=== PATIENT | female | born 1955 | race Caucasian/White ===

== ENCOUNTER 2018-06-24 09:08 | Outpatient (REF) | payer MEDICAID, SELFPAY ==
[2018-06-24 12:50] LABS: ALT 35 U/L (12-78); AST 22 U/L (15-37); Albumin 3.2 g/dL (3.4-5.0); Alkaline Phosphatase 121 U/L (46-116); Anion Gap 8.4 mmol/L (3-11); BUN 10 mg/dL (7-18); Bilirubin, Total 0.4 mg/dL (0.2-1.0); CO2 29.6 mmol/L (21.0-32.0); CREATININE 0.69 mg/dL (0.55-1.02); Calcium 9.9 mg/dL (8.5-10.1); Chloride 101 mmol/L (98-107); Cholesterol 234 mg/dL (50-200); Glucose 107 mg/dL (70-100); HDL Cholesterol 28 mg/dL (40-60); LDL CHOLESTEROL 161 mg/dL (<100); Potassium 4.7 mmol/L (3.5-5.1); Sodium 139 mmol/L (136-145); TSH (W/Ref FT4) 2.18 uIU/mL (0.358-3.74); Total Protein 7.2 g/dL (6.4-8.2); Triglyceride 190 mg/dL (30-150)
[2018-06-24 14:09] LABS: Hemoglobin A1C 6.3 % (4.5-6.2)
== END 2018-06-24 09:28 ==
LOC: NCHCN 09:08
PROVIDERS: PCP Nurse Practitioner Family; Visit Provider Nurse Practitioner Family
DX: E78.5 Hyperlipidemia, unspecified (principal); E04.1 Nontoxic single thyroid nodule; E11.9 Type 2 diabetes mellitus without complications; Z00.00 Encounter for general adult medical examination without abnormal findings
CPT/HCPCS: 80053; 80061; 83721; 83036; 84443

== ENCOUNTER 2018-06-28 09:28 | Outpatient (CLI) | payer MEDICAID, SELFPAY ==
--- NOTE | 2018-06-28 09:22 | DI.RAD_ITS ---
SYMPTOMS/DIAGNOSIS: PAIN RIGHT KNEE: Two views. No priors. There are post surgical changes of a prior anterior cruciate ligament repair. There is marked narrowing of the medial femoral tibial joint space and the patellofemoral joint. Large osteophytes are seen involving all three joint compartments. No acute fracture or dislocation is identified. There is a small suprapatellar joint effusion. The soft tissues are otherwise unremarkable. IMPRESSION: Marked osteoarthritic changes of the right knee.
== END 2018-06-28 09:48 ==
PROVIDERS: PCP Nurse Practitioner Family; Visit Provider Physician Assistant Surgical
DX: M25.561 Pain in right knee (principal); M17.11 Unilateral primary osteoarthritis, right knee
CPT/HCPCS: 73560

== ENCOUNTER 2018-07-18 13:23 | Outpatient (REF) | payer MEDICAID, SELFPAY ==
[2018-07-18 19:54] LABS: COMMENT (LAB VIEW ONLY) < 13.00 mg/dL
[2018-07-20 10:36] LABS: Hepatitis C Ab w Rflx HCV PCR Negative (NEGAT)
== END 2018-07-18 13:43 ==
LOC: NCHCN 13:23
PROVIDERS: PCP Nurse Practitioner Family; Visit Provider Nurse Practitioner Family
DX: E11.9 Type 2 diabetes mellitus without complications (principal); Z87.19 Personal history of other diseases of the digestive system
CPT/HCPCS: 86803; 82043; 82570

== ENCOUNTER 2019-11-13 08:15 | Emergency (ER) | payer MEDICAID, SELFPAY ==
--- NOTE | 2019-11-13 08:15 | RT.EKG_ITS ---
APPROVED REPORT Exam: Resting ECG Patient Location: E HR:76 bpm ECG Measurements Heart Rate 76 AXIS NJ 156 P 0 QRSd 96 QRS 73 QT 402 T 80 QTc 453 Conclusion Sinus rhythm...normal P axis, V-rate 60- 99 Low voltage, extremity leads <0.5mV no st elevation, non specific st changes I,aVL
[2019-11-13 08:21] VITALS: BP 185/86; PULSE 105; RESP 16; TEMP 35.6; O2SAT 98
[2019-11-13] MEDS: Normal Saline 1,000 ML 1000 ML IV (08:50)
--- NOTE | 2019-11-13 08:54 | ED.GENADUL_ITS ---
Discharge Plan Disposition Patient Disposition: HOME Condition: Stable Discharge Details Clinical Impression: Gastritis Primary Care Provider: Niharika Carey ED Provider: Yosvany Booth Home Meds and New Rx's Prescriptions: New famotidine [Pepcid] 20 mg tablet 20 mg PO DAILY Qty: 30 RF: 0 Continued meloxicam [Mobic] 7.5 mg tablet 7.5 mg PO DAILY RF: 0 omeprazole 40 mg capsule,delayed release(DR/EC) 40 mg PO DAILY RF: 0 atorvastatin [Lipitor] 20 mg tablet 20 mg PO DAILY RF: 0 Discharge Instructions Instructions: Gastritis (ED) Additional Instructions: At this time your work-up and CT findings are most consistent with gastritis. As we discussed I do recommend cutting back on triggers such as smoking, caffeine, acidic foods, etc. I would like you to be sure that you are taking the omeprazole as directed and add on Pepcid in the meantime. Please watch for new or worsening symptoms and return to the ER for any concerns. I have also given you the name and number of our local general surgeon as you may require additional studies and reevaluation for more definitive care. Otherwise I recommend you contact your primary care provider later today or tomorrow for prompt outpatient reevaluation Referrals: Kailee Sebastian DO [OSTEOPATHIC DOCTOR] - Medical Decision Making 64-year-old female with history of what she describes as a stomach ulcer, GERD, hyperlipidemia, presents with epigastric discomfort that is been present for the past 4 days, worse after eating. She did not have breakfast and reports that her pain is fairly mild at this time. Clinically she appears well, nontoxic. Does have reproducible abdominal pain in the epigastric region without guarding, rebound or rigidity. Clinically her differential includes but not excluded to gastritis, peptic ulcer, duodenal ulcer, pancreatitis, esophagitis, biliary colic, etc. Given her age and comorbidities, I do believe a single troponin and EKG is reasonable to obtain however ACS extremely low my differential. Laboratory values reveal a white blood cell count of 12.48 hemoglobin 15.2 hematocrit 46.2 platelet count 362. INR 0.9 electrolytes unremarkable, creatinine 0.73 with estimated GFR greater than 60. LFTs unremarkable. Troponin less than 0.05. Urinalysis unremarkable. Upon reevaluation both blood pressure and heart rate are trending down nicely. She was given a GI cocktail with mild improvement. Given her mild nonspecific leukocytosis, will obtain CT imaging of the abdomen pelvis with contrast as well as give her a single dose of IV Pepcid. CT imaging obtained and read by radiology as findings that would be consistent with gastritis. This certainly fits her clinical presentation. Upon reevaluation she reports significant improvement of her pain with the IV med ication. We once again discussed her work-up including her most likely diagnosis. We discussed triggers such as smoking, caffeine, acidic foods, [id number] anti-inflammatory medications. She has been taking [id number] omeprazole for short period of time, does not feel as though it is really helping. We will add on oral Pepcid and give her the name and number of our local surgeon for follow-up and potential outpatient endoscopy. Patient has no additional questions or concerns and is very comfortable with this plan. She was encouraged to return to the ER for new or worsening symptoms. Medical Records Medical records reviewed: Yes I reviewed the patient's medical records. Lab Data Lab results reviewed: Yes I reviewed the patient's lab results. Lab results narrative: Laboratory Tests Range/Units 11/13/19 11/13/19 11/13/19 08:45 08:45 08:45 WBC (4.4-10.8) 10^3/uL RBC (3.93-5.22) 10^6/uL Hgb (11.2-15.7) g/dL Hct (36.0-46.0) % MCV (80-95) fL MCH (27.0-33.0) pg MCHC (32.0-36.0) % RDW (11.7-14.6) % Plt Count (130-400) 10^3/uL MPV (8.0-11.0) fL Immature Gran % Neutrophils % Lymphocytes % Monocytes % Eosinophils % Basophils % Nucleated RBC % % Absolute Neutrophils (1.2-6.7) 10^3/uL Absolute Lymphocytes (1.2-3.4) 10^3/uL Absolute Monocytes (0.1-0.8) 10^3/uL Absolute Eosinophils (0.0-0.7) 10^3/uL Absolute Basophils (0.0-0.2) 10^3/uL PT (9.3-11.0) sec 9.5 INR (0.9-1.1) 0.9 Sodium (136-145) mmol/L 138 Potassium (3.5-5.1) mmol/L 4.0 Chloride (98-107) mmol/L 103 Carbon Dioxide (21.0-32.0) mmol/L 28.9 Anion Gap (3-11) mmol/L 6.1 BUN (7-18) mg/dL 13 Creatinine (0.55-1.02) mg/dL 0.73 Estimated GFR/1.73 m2 (mL/min/1.73m2) >= 60.00 Glucose (74-106) mg/dL 128 H Calcium (8.5-10.1) mg/dL 9.5 Magnesium (1.8-2.4) mg/dL 2.0 Total Bilirubin (0.2-1.0) mg/dL 0.3 AST (15-37) U/L 19 ALT (14-59) U/L 30 Alkaline Phosphatase (46-116) U/L 92 Troponin I (<0.06) ng/mL < 0.05 Total Protein (6.4-8.2) g/dL 7.2 Albumin (3.4-5.0) g/dL 3.4 Lipase (73-393) U/L 139 Urine Color (Yellow) Urine Clarity (Clear) Urine pH (5-8) Ur Specific Poston (1.005-1.025) Urine Protein (Negative) mg/dL Urine Ketones (Negative) mg/dL Urine Blood (Negative) Urine Nitrite (Negative) Urine Bilirubin (Negative) Urine Urobilinogen (Up TO 0.2) EU/dL Ur Leukocyte Esterase (Negative) Urine Glucose (Negative) mg/dL Range/Units 11/13/19 11/13/19 11/13/19 08:45 09:13 11:29 WBC (4.4-10.8) 10^3/uL 12.48 H RBC (3.93-5.22) 10^6/uL 5.24 H Hgb (11.2-15.7) g/dL 15.2 Hct (36.0-46.0) % 46.2 H MCV (80-95) fL 88.2 MCH (27.0-33.0) pg 29.0 MCHC (32.0-36.0) % 32.9 RDW (11.7-14.6) % 12.6 Plt Count (130-400) 10^3/uL 362 MPV (8.0-11.0) fL 9.4 Immature Gran % 0.5 Neutrophils % 63.7 Lymphocytes % 26.5 Monocytes % 6.9 Eosinophils % 2.2 Basophils % 0.2 Nucleated RBC % % 0 Absolute Neutrophils (1.2-6.7) 10^3/uL 7.95 H Absolute Lymphocytes (1.2-3.4) 10^3/uL 3.31 Absolute Monocytes (0.1-0.8) 10^3/uL 0.86 H Absolute Eosinophils (0.0-0.7) 10^3/uL 0.27 Absolute Basophils (0.0-0.2) 10^3/uL 0.02 PT (9.3-11.0) sec INR (0.9-1.1) Sodium (136-145) mmol/L Potassium (3.5-5.1) mmol/L Chloride (98-107) mmol/L Carbon Dioxide (21.0-32.0) mmol/L Anion Gap (3-11) mmol/L BUN (7-18) mg/dL Creatinine (0.55-1.02) mg/dL Estimated GFR/1.73 m2 (mL/min/1.73m2) Glucose (74-106) mg/dL Calcium (8.5-10.1) mg/dL Magnesium (1.8-2.4) mg/dL Total Bilirubin (0.2-1.0) mg/dL AST (15-37) U/L ALT (14-59) U/L Alkaline Phosphatase (46-116) U/L Troponin I (<0.06) ng/mL Cancelled Total Protein (6.4-8.2) g/dL Albumin (3.4-5.0) g/dL Lipase (73-393) U/L Urine Color (Yellow) Yellow Urine Clarity (Clear) Clear Urine pH (5-8) 6.0 Ur Specific Poston (1.005-1.025) 1.010 Urine Protein (Negative) mg/dL Negative Urine Ketones (Negative) mg/dL Negative Urine Blood (Negative) Negative Urine Nitrite (Negative) Negative Urine Bilirubin (Negative) Negative Urine Urobilinogen (Up TO 0.2) EU/dL 0.2 Ur Leukocyte Esterase (Negative) Negative Urine Glucose (Negative) mg/dL Negative ECG Data Attestation: I personally reviewed and interpreted this ECG (s) as follows: Interpretation: Please see official report by Dr. Donnelly. Sinus rhythm, ventricular rate of 76. No STEMI HPI General Mode of arrival: ambulatory . Date/Time Provider Initiated Documentation: 11/13/19 08:26 . Limitations to Documentation: no limitations . Information obtained by: patient . HPI Narrative: This is a 64-year-old female with past medical history that includes GERD, ulcer, hyperlipidemia, current pack a day smoker. She reports a history of hysterectomy and exploratory laparotomy. She is complaining of abdominal pain that is been present for the past 4 days or so, fairly constant, but worse after eating and sitting forward. She says the pain is burning and feels like someone is scratching at her stomach from the inside, currently is extremely mild but at times is severe. She denies any other symptoms such as bad food exposure, change in her diet, fever, chest pain, shortness of breath, radiation into her back, nausea, vomiting, diarrhea, constipation, dysuria or hematuria. She has taken some Pepto-Bismol [id number] with only minimal relief. Lying down flat on her back does seem to alleviate the pain. She has not eaten this morning and states that her pain is mild now because of that. She tells me that her gallbladder has acted up in the past but is never required surgery. Per her triage note it states that she has had occasional problems with her pancreas however she denies this to me. She denies any alcohol or drug use. She has never had an endoscopy. Reports colonoscopy probably 5 or 6 years ago in [place]. Related Data Home Medications Medication Instructions Recorded Confirmed atorvastatin 20 mg tablet 20 mg PO DAILY 06/28/18 11/13/19 meloxicam 7.5 mg tablet 7.5 mg PO DAILY 06/28/18 11/13/19 omeprazole 40 mg capsule,delayed 40 mg PO DAILY 06/28/18 11/13/19 release famotidine [Pepcid] 20 mg PO DAILY #30 tab 11/13/19 Previous Rx's Medication Instructions Recorded famotidine [Pepcid] 20 mg PO DAILY #30 tab 11/13/19 Allergies Allergy/AdvReac Type Severity Reaction Status Date / Time codeine Allergy Severe ORAL Verified 11/13/19 08:26 BLISTERS, THROAT SWELLING Penicillins Allergy Severe ORAL Verified 11/13/19 08:26 BLISTERS, THROAT SWELLING Egg Derived Allergy Intermediate Verified 11/13/19 08:26 General Stated Complaint: Abd Prob JUNO: 3 Review of Systems Constitutional Constitutional: Denies fatigue and Denies fever(s) ENT Ears, Nose, Mouth, and Throat: Denies neck pain and Denies sore throat Cardiovascular Cardiovascular: Denies chest pain and Denies dyspnea Respiratory Respiratory: Reports cough (Mild, smoker's cough. At baseline) and Denies dyspnea Gastrointestinal Gastrointestinal: Reports abdominal pain, Denies melena, Denies hematochezia, Denies change in bowel habits, Denies constipation, Denies diarrhea, Denies nausea and Denies vomiting Genitourinary Genitourinary: Denies dysuria Musculoskeletal Musculoskeletal: Denies back pain and Denies neck pain Integumentary/Breasts Skin/Breast: Denies rash Endocrine Endocrine: Denies fatigue Exam Const General: cooperative, healthy appearing, comfortable and no acute distress Orientation: alert, awake and oriented x3 HENMT Head: normal to inspection, normocephalic and atraumatic Face and sinus: normal facial exam Mouth: moist mucous membranes Throat: posterior oropharynx normal Eyes Conjunctivae: conjunctivae normal Sclera: sclerae normal Neck Neck: normal visual inspection, full ROM, trachea midline and supple Resp Effort & Inspection: normal respiratory effort and able to speak in complete sentences Auscultation: clear to auscultation bilaterally Cardio Rate: regular rate Rhythm: regular rhythm GI Inspection: normal to inspection Palpation: soft, not firm, no guarding, not rigid and tender in the epigastrum Auscultation: normal bowel sounds Back/Spine/Pelvis Back: No back tenderness Skin General skin exam: no rashes or lesions noted Neuro General: patient alert, patient awake, moves all extremities and no focal motor deficits Speech: speech normal Gait: normal gait Motor: muscle tone normal throughout Sensory Exam: no sensory deficits noted Extrem General: normal to inspection, full ROM, capillary refill normal, no pedal edema and no calf tenderness Psych Appearance: grossly normal Mental Status: mental status grossly normal Course Vital Signs Vital signs: Vital Signs Temperature 35.6 C L 11/13/19 08:21 Pulse 105 H 11/13/19 08:21 Respiratory Rate 16 11/13/19 08:21 Blood Pressure 185/86 H 11/13/19 08:21 Pulse Oximetry 98 11/13/19 08:21 Temperature 35.6 C L 11/13/19 08:21 Temperature Source Skin 11/13/19 08:21 Pulse 105 H 11/13/19 08:21 Respiratory Rate 16 11/13/19 08:21 Respiratory Effort Non-Labored 11/13/19 08:21 Blood Pressure 185/86 H 11/13/19 08:21 Blood Pressure Position Sitting 11/13/19 08:21 Pulse Oximetry 98 11/13/19 08:21 Oxygen Delivery Method Room Air 11/13/19 08:21 Oxygen Flow Rate 0 11/13/19 08:21 Pain Level 0 11/13/19 08:21 Lab/Test Results Lab/Test Results: Laboratory Tests Range/Units 11/13/19 11:29 Troponin I Cancelled
[2019-11-13 08:55] LABS: Abs Immature Grans 0.06 10^3/uL (0.0-0.06); Absolute Eosinophil Count 0.27 10^3/uL (0.0-0.7); Absolute Lymphocyte Count 3.31 10^3/uL (1.2-3.4); Absolute Monocyte Count 0.86 10^3/uL (0.1-0.8); Absolute Neutrophil Count 7.95 10^3/uL (1.2-6.7); Basophils % 0.2; Eosinophils % 2.2; HCT 46.2 % (36.0-46.0); HGB 15.2 g/dL (11.2-15.7); Immature Grans % 0.5; Lymphocytes % 26.5; MCHC 32.9 % (32.0-36.0); MCV 88.2 fL (80-95); MPV 9.4 fL (8.0-11.0); Monocytes % 6.9; Neutrophils % 63.7; Nucleated RBC 0 %; Platelet Count 362 10^3/uL (130-400); RBC 5.24 10^6/uL (3.93-5.22); RDW 12.6 % (11.7-14.6); RDW-SD 40.8 fL; WBC 12.48 10^3/uL (4.4-10.8)
[2019-11-13 08:56] LABS: Absolute Basophil Count 0.02 10^3/uL (0.0-0.2)
[2019-11-13 09:06] LABS: Lipase 139 U/L (73-393)
[2019-11-13 09:08] LABS: INR 0.9 (0.9-1.1); Prothrombin Time 9.5 sec (9.3-11.0)
[2019-11-13 09:13] LABS: ALT 30 U/L (14-59); AST 19 U/L (15-37); Albumin 3.4 g/dL (3.4-5.0); Alkaline Phosphatase 92 U/L (46-116); Anion Gap 6.1 mmol/L (3-11); BUN 13 mg/dL (7-18); Bilirubin, Total 0.3 mg/dL (0.2-1.0); CO2 28.9 mmol/L (21.0-32.0); CREATININE 0.73 mg/dL (0.55-1.02); Calcium 9.5 mg/dL (8.5-10.1); Chloride 103 mmol/L (98-107); Glucose 128 mg/dL (74-106); Sodium 138 mmol/L (136-145); Total Protein 7.2 g/dL (6.4-8.2); Troponin I < 0.05 ng/mL (<0.06)
--- NOTE | 2019-11-13 09:15 | DI.CT_ITS ---
EXAM: CT ABDOMEN PELVIS W INDICATION: Epigastric pain, mild leukocytosis. COMPARISON: No exams were available for comparison TECHNIQUE: FINDINGS: CT examination of the abdomen and pelvis was performed with a bolus infusion of 100 cc of Omnipaque 3 50. Images obtained through the lung bases are unremarkable. Liver, spleen and pancreas appear normal. Ga llbladder and bile ducts are CT normal. There is nondistended stomach, however there is suspicion of gastric wall thickening, particularly in volving gastric antrum. The findings could represent a gastritis, please correlate clinically. Adrenals and kidneys are unremarkable. Urinary bladder unremarkable. Abdominal aorta is of normal diameter. There is marked atheromatous plaque of the abdominal aorta. No major visceral branch stenosis seen. No abdominal wall hernia. No abdominal or pelvic adenopathy. The uterus appears to atrophic or absent. Appendix is nonvisualized but there is no evidence of appendicitis.. No evidence of diverticulitis o r bowel obstruction. IMPRESSION: Findings raising the possibility of gastritis. Please correlate clinically. Additional evaluation w ith endoscopy may be considered if clinically appropriate. RADIATION DOSE DELIVERED: Total DLP Total DLP
[2019-11-13 09:18] LABS: Bilirubin Negative (Negative); Blood Negative (Negative); Clarity Clear (Clear); Glucose Negative (Negative); Ketones Negative (Negative); Leukocyte Esterase Negative (Negative); Nitrite Negative (Negative); Urobilinogen 0.2 EU/dL (Up TO 0.2)
[2019-11-13] MEDS: FAMOTIDINE 20 MG/50 ML BAG 200 MG IVPB (09:30)
[2019-11-13] MEDS: Omnipaque 350 MG/ML 100 ML BTL IJ (10:20)
[2019-11-13] MEDS: Normal Saline - Diluent 50 ML VIAL IV (10:21)
[2019-11-13 10:24] VITALS: BP 153/81; PULSE 65; O2SAT 98
== END 2019-11-13 10:27 | disposition home or self-care (01) ==
PROVIDERS: Emergency Provider Physician Assistant; PCP Nurse Practitioner Family
DX: K29.00 Acute gastritis without bleeding (principal)
CPT/HCPCS: 36415; 80053; 83690; 93005; 96361; 96374; 99285; 74177; 81003; 83735; 84484; 85025; 85610; 93010; 99284; J3490

== ENCOUNTER 2019-12-25 00:48 | Outpatient (CLI) | payer MEDICAID, SELFPAY ==
--- NOTE | 2019-12-25 | DI.US_ITS ---
EXAM: US THYROID CLINICAL HISTORY: H/O THYROID NODULE, E04.1 TECHNIQUE: Ultrasound performed using standard protocol. COMPARISON: No exams were available for comparison FINDINGS: Thyroid ultrasound was performed according to the usual protocol. There is appearance consistent wit h multinodular goiter. Right thyroid lobe measures 54 x 16 x 29 millimeters and left thyroid lobe me asures 48 x 14 x 17 millimeters. There are innumerable heterogeneous thyroid nodules. Largest nodule is a 24 millimeter in diameter m ixed cystic and solid nodule of the lower pole of the right thyroid lobe, this is isoechoic to thyroi d parenchyma, wider than tall, and has possible extrathyroidal extension of the border. This is a TR 4 lesion by TI-RADS classification, moderately suspicious, fine-needle aspiration recommended for si ze in excess of 1.5 cm. No other suspicious nodules identified. IMPRESSION: Moderately suspicious right thyroid lobe nodule, TR 4 classification by TI-RADS guidelines; fine-need le aspiration recommended. DATA REPOSITORY:
--- NOTE | 2019-12-25 15:15 | DI.MAMMO_ITS ---
EXAM: MAMMO SCREENING CLINICAL HISTORY: SCREENING, Z12.39 TECHNIQUE: Mammograms were interpreted according to the usual protocol including computer analysis w [employer] CAD system, tomosynthesis and C-view imaging. COMPARISON: FINDINGS: The breasts are heterogeneously dense. No dominant mass or clumped microcalcification is identified in either breast. No prior studies are available for comparison. IMPRESSION: No specific evidence of malignancy at this time. Routine screening examinations are suggested at ye zain intervals due to the family history of breast carcinoma. BI-RADS Category 1 - Negative Breast Density - Category C - Heterogeneously dense
== END 2019-12-25 01:08 ==
PROVIDERS: PCP Nurse Practitioner Family; Visit Provider Nurse Practitioner Family
DX: E04.1 Nontoxic single thyroid nodule (principal); Z12.31 Encounter for screening mammogram for malignant neoplasm of breast; Z80.3 Family history of malignant neoplasm of breast
CPT/HCPCS: 77063; 77067; 76536

== ENCOUNTER 2020-09-05 13:29 | Outpatient (CLI) | payer MEDICAID, SELFPAY ==
--- NOTE | 2020-09-05 11:15 | DI.RAD_ITS ---
Exam(s) XR WRIST RT COMPLETE EXAM: XR WRIST RT COMPLETE CLINICAL HISTORY: right wrist pain. TECHNIQUE: 2D digital imaging was performed. COMPARISON: CR XR WRIST LT COMPLETE from 09/05/2020 FINDINGS: BONES: No acute fracture is present. No bony destructive lesion is seen. JOINTS: The carpal bones are normally aligned. There are degenerative changes of the 1st carpal meta carpal joint, with periarticular spurring and joint space narrowing. There is mild lateral subluxati on of the 1st metacarpal. There are few tiny adjacent bony densities. Degenerate degenerative castellano es also seen at the scaphoid multangular joint and 1st metacarpophalangeal joint. SOFT TISSUE: Normal. IMPRESSION: Degenerative changes, greatest at the 1st carpal metacarpal joint. DATA REPOSITORY: RADIATION DOSE DELIVERED:
--- NOTE | 2020-09-05 11:15 | DI.RAD_ITS ---
Exam(s) XR WRIST LT COMPLETE EXAM: XR WRIST LT COMPLETE CLINICAL HISTORY: left wrist pain; [facility]. TECHNIQUE: 2D digital imaging was performed. COMPARISON: No exams were available for comparison FINDINGS: BONES: No acute fracture is present. No bony destructive lesion is seen. JOINTS: The carpal bones are normally aligned. There is spurring at the trapezium and base of the 1st metacarpal and mild joint space narrowing. There is a chronic appearing bony density seen lateral t o the trapezium. No other significant degenerative changes are seen. SOFT TISSUE: Normal. IMPRESSION: [id number] degenerative changes at the 1st carpometacarpal joint. DATA REPOSITORY: RADIATION DOSE DELIVERED:
== END 2020-09-05 13:30 | disposition home or self-care (01) ==
LOC: DIORS 13:30
PROVIDERS: PCP Nurse Practitioner Family; Referring Provider Nurse Practitioner Family; Visit Provider Physician Assistant
DX: M18.0 Bilateral primary osteoarthritis of first carpometacarpal joints (principal)
CPT/HCPCS: 73110

== ENCOUNTER 2021-03-21 14:53 | Outpatient (REF) | payer MEDICAID, SELFPAY ==
[2021-03-21 15:39] LABS: HCT 43.8 % (36.0-46.0); HGB 14.3 g/dL (11.2-15.7); MCH 28.4 pg (27.0-33.0); MCHC 32.6 % (32.0-36.0); MCV 87.1 fL (80-95); MPV 11.8 fL (8.0-11.0); Platelet Count 356 10^3/uL (130-400); RBC 5.03 10^6/uL (3.93-5.22); RDW 13.2 % (11.7-14.6); RDW-SD 42.1 fL; WBC 13.55 10^3/uL (4.4-10.8)
[2021-03-21 16:23] LABS: ALT 40 U/L (14-59); AST 18 U/L (15-37); Albumin 3.6 g/dL (3.4-5.0); Alkaline Phosphatase 108 U/L (46-116); Anion Gap 11.4 mmol/L (3-11); BUN 9 mg/dL (7-18); Bilirubin, Total 0.3 mg/dL (0.2-1.0); CO2 25.6 mmol/L (21.0-32.0); CREATININE 0.8 mg/dL (0.55-1.02); Calcium 9.7 mg/dL (8.5-10.1); Calculated LDL 148 mg/dL (<100); Chloride 101 mmol/L (98-107); Cholesterol 241 mg/dL (<200); Glucose 134 mg/dL (74-106); HDL Cholesterol 31 mg/dL (40-60); Potassium 4.1 mmol/L (3.5-5.1); Sodium 138 mmol/L (136-145); TSH (W/Ref FT4) 2.06 uIU/mL (0.36-3.74); Triglyceride 313 mg/dL (<150)
== END 2021-03-21 14:54 | disposition home or self-care (01) ==
LOC: LBN 14:53
PROVIDERS: PCP Nurse Practitioner Family; Visit Provider Nurse Practitioner Family
DX: E04.1 Nontoxic single thyroid nodule (principal); R03.0 Elevated blood-pressure reading, without diagnosis of hypertension; E78.5 Hyperlipidemia, unspecified
CPT/HCPCS: 80053; 80061; 85027; 84443

== ENCOUNTER 2021-03-24 02:04 | Outpatient (CLI) | payer MEDICAID, SELFPAY ==
--- NOTE | 2021-03-24 10:35 | DI.RAD_ITS ---
Exam(s) XR HIP LT COMPLETE AP PELVIS EXAM: XR HIP LT COMPLETE AP PELVIS CLINICAL HISTORY: HIP PAIN,M25.559. TECHNIQUE: 2D digital imaging was performed. COMPARISON: No exams were available for comparison FINDINGS: No evidence of pelvic nor hip fracture. No obvious degenerative changes in the left hip. Also no degenerative changes in the right hip. Sacroiliac joints appear unremarkable. Bone density normal IMPRESSION: DATA REPOSITORY: RADIATION DOSE DELIVERED:
== END 2021-03-24 02:24 ==
PROVIDERS: PCP Nurse Practitioner Family; Visit Provider Nurse Practitioner Family
DX: M25.552 Pain in left hip (principal)
CPT/HCPCS: 73502

== ENCOUNTER 2021-05-13 13:07 | Emergency (ER) | payer MEDICAID, SELFPAY ==
[2021-05-13 13:14] VITALS: BP 163/137; PULSE 122; RESP 18; TEMP 36.4; O2SAT 96
--- NOTE | 2021-05-13 13:38 | ED.GENADUL_ITS ---
Discharge Plan Disposition Patient Disposition: HOME Condition: Improving Discharge Details Clinical Impression: Laceration of wrist, right Primary Care Provider: Niharika Carey ED Provider: Yosvany Booth Home Meds and New Rx's Prescriptions: Continued meloxicam [Mobic] 7.5 mg tablet 7.5 mg PO DAILY 0RF omeprazole 40 mg capsule,delayed release(DR/EC) 40 mg PO DAILY 0RF atorvastatin [Lipitor] 20 mg tablet 20 mg PO DAILY 0RF vitamin B complex [B Complex-Vitamin B12] Tablet 1 tab PO DAILY 0RF vitamin E 200 unit capsule 200 unit PO DAILY 0RF cholecalciferol (vitamin D3) 50 mcg (2,000 unit) capsule 50 mcg PO DAILY 0RF famotidine [Pepcid] 20 mg tablet 20 mg PO DAILY Qty: 30 0RF Discharge Instructions Instructions: Laceration (ED) Additional Instructions: Laceration repaired without difficulty, your tetanus status was updated. Please watch for new or worsening symptoms and return to the ER for any concerns. [id number] Tylenol and/or Motrin as directed for discomfort. Keep the area clean and dry, change antibiotic dressing daily, wear splint to avoid tearing of the sutures. Sutures should be removed in approximately 10 days. 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 Tetanus not up-to-date. Will need to update tetanus. Patient declines x-ray to rule out foreign body or bony involvement. Her blood pressure in triage as well as her post were both elevated however during my examination I rechecked her blood pressure, it was 152/96 and her pulse was 92. Laceration repaired without difficulty after it was thoroughly cleaned and irrigated. Laceration then dressed appropriately. Patient declined wrist splint, already has one at home. Standard discharge and return precautions provided This documentation was generated using [employer] system, please disregard any oddities of phrase or misspellings. Medical Records Medical records reviewed: Yes I reviewed the patient's medical records. HPI General Mode of arrival: ambulatory . Date/Time Provider Initiated Documentation: 05/13/21 13:27 . Limitations to Documentation: no limitations . Information obtained by: patient . History of Present Illness 66 year old F presents to the emergency department with the chief complaint of R hand/wrist lac, described as moderate, with intensity rated at 5. Quality is described as aching, and is localized to the right and upper extremity. Patient reports no radiation. Patient started experiencing this minute(s) (10) and it has been constant. improves with No relieving factors improve symptom(s), No exacerbating factors reported . Patient notes no other symptoms.. Patient did receive the following treatments prior to arrival, none Related Data Home Medications Medication Instructions Recorded Confirmed atorvastatin 20 mg tablet (Lipitor) 20 mg PO DAILY 06/28/18 05/13/21 meloxicam 7.5 mg tablet (Mobic) 7.5 mg PO DAILY 06/28/18 05/13/21 omeprazole 40 mg capsule,delayed 40 mg PO DAILY 06/28/18 05/13/21 release famotidine 20 mg tablet (Pepcid) 20 mg PO DAILY #30 tab 11/13/19 05/13/21 cholecalciferol (vitamin D3) 50 50 mcg PO DAILY 09/05/20 05/13/21 mcg (2,000 unit) capsule vitamin B complex (B 1 tab PO DAILY 09/05/20 05/13/21 Complex-Vitamin B12) vitamin E 200 unit capsule 200 unit PO DAILY 09/05/20 05/13/21 Previous Rx's Medication Instructions Recorded famotidine 20 mg tablet (Pepcid) 20 mg PO DAILY #30 tab 11/13/19 Allergies Allergy/AdvReac Type Severity Reaction Status Date / Time codeine Allergy Severe ORAL Verified 05/13/21 13:20 BLISTERS, THROAT SWELLING Penicillins Allergy Severe ORAL Verified 05/13/21 13:20 BLISTERS, THROAT SWELLING Egg Derived Allergy Intermediate Verified 05/13/21 13:20 General Stated Complaint: Laceration JUNO: 4 Review of Systems Constitutional Constitutional: Denies fever(s) and Denies weakness Musculoskeletal Musculoskeletal: Denies deformity, Denies arthralgias, Denies numbness, Denies stiffness and Denies tingling Integumentary/Breasts Skin/Breast: Denies erythema Neurologic Neurologic: Denies numbness, Denies tingling and Denies weakness PFSH All Active Problems (Updated 05/13/21 @ 15:03 by CANDI Ritter) Laceration of wrist, right (Acute) Right wrist sprain (Acute) Arthritis of carpometacarpal (CMC) joint of both thumbs (Acute) Social History Smoking/Tobacco Use Status: Current every day Smoking risk assessment performed?: Yes Alcohol Intake: never Drug use: Never Substance use type: does not use Do you feel safe at home: Yes Exam Const General: cooperative, healthy appearing, comfortable, no acute distress and anxious Orientation: alert and awake HENMT Head: normal to inspection, normocephalic and atraumatic Mouth: moist mucous membranes Eyes General: appearance normal, both eyes and all related structures Conjunctivae: conjunctivae normal Neck Neck: normal visual inspection, trachea midline and supple Resp Effort & Inspection: normal respiratory effort and able to speak in complete sentences Cardio Rate: regular rate Rhythm: regular rhythm Skin General skin exam: no rashes or lesions noted Neuro General: patient alert, patient awake, moves all extremities and no focal motor deficits Cognition: normal cognition Speech: speech normal Gait: normal gait Motor: muscle tone normal throughout Sensory Exam: no sensory deficits noted Extrem General: full ROM and capillary refill normal Hand/finger images: 1. Abrasion 2. Irregular, Y-shaped, 3.5 cm laceration. Bleeding controlled. Neuro, vascular, tendon intact. 5 out of 5 strength. Normal radial pulse and capillary refill Psych Appearance: grossly normal Mental Status: mental status grossly normal Course Vital Signs Vital signs: Vital Signs Temperature 36.4 C L 05/13/21 13:14 Pulse 122 H 05/13/21 13:14 Respiratory Rate 18 05/13/21 13:14 Blood Pressure 163/137 H 05/13/21 13:14 Pulse Oximetry 96 05/13/21 13:14 Temperature 36.4 C L 05/13/21 13:14 Temperature Source Temporal Artery Scan 05/13/21 13:14 Pulse 122 H 05/13/21 13:14 Respiratory Rate 18 05/13/21 13:14 Respiratory Effort Non-Labored 05/13/21 13:17 Blood Pressure 163/137 H 05/13/21 13:14 Blood Pressure Position Sitting 05/13/21 13:14 Pulse Oximetry 96 05/13/21 13:14 Oxygen Delivery Method Room Air 05/13/21 13:14 Oxygen Flow Rate 0 05/13/21 13:14 Pain Level 0 05/13/21 13:17 Procedures Laceration Laceration 1: Site: upper extremity Side (If applicable): right Size (cm): 3.5 Description: irregular Depth: simple, single layer Local Anesthetic: Lidocaine 1%, Bupivicaine 0.5% and other anesthetic ([id number] mixture) Amount of anesthesia used (mL): 5 Pre-repair: wound explored, irrigated extensively and deep structures intact Skin layer closed with: nylon Size (cm): 4-0 Number of sutures: 7 Technique: simple, interrupted
== END 2021-05-13 15:17 | disposition home or self-care (01) ==
PROVIDERS: Emergency Provider Physician Assistant; PCP Nurse Practitioner Family
DX: S61.511A Laceration without foreign body of right wrist, initial encounter (principal); W29.0XXA Contact with powered kitchen appliance, initial encounter
CPT/HCPCS: 12002; 90471

== ENCOUNTER 2022-04-16 16:03 | Outpatient (REF) | payer MEDICAID, SELFPAY ==
[2022-04-16 15:20] LABS: Anion Gap 8.2 mmol/L (3-11); BUN 8 mg/dL (7-18); CO2 27.8 mmol/L (21.0-32.0); CREATININE 0.8 mg/dL (0.55-1.02); Calcium 9.6 mg/dL (8.5-10.1); Calculated LDL 140 mg/dL (<100); Chloride 99 mmol/L (98-107); Cholesterol 207 mg/dL (<200); Estimated GFR 81.72 (mL/min/1.73m2); Glucose 137 mg/dL (74-106); HDL Cholesterol 38 mg/dL (40-60); Potassium 4.7 mmol/L (3.5-5.1); Sodium 135 mmol/L (136-145); Triglyceride 146 mg/dL (<150)
== END 2022-04-16 16:04 | disposition home or self-care (01) ==
LOC: NCHCN 16:03
PROVIDERS: PCP Nurse Practitioner Family; Visit Provider Nurse Practitioner Family
DX: Z13.220 Encounter for screening for lipoid disorders (principal); Z13.228 Encounter for screening for other metabolic disorders; Z00.00 Encounter for general adult medical examination without abnormal findings
CPT/HCPCS: 80048; 80061

== ENCOUNTER 2022-05-29 01:09 | Outpatient (CLI) | payer MEDICAID, SELFPAY ==
--- NOTE | 2022-05-29 15:15 | DI.MAMMO_ITS ---
Exam(s) MAMMO SCREENING EXAM: MAMMO SCREENING CLINICAL HISTORY: SCREENING, Z12.39 TECHNIQUE: Mammograms were interpreted according to the usual protocol including computer analysis w [employer] CAD system, tomosynthesis and C-view imaging. COMPARISON: 2019 FINDINGS: The breasts are composed of heterogeneously dense fibroglandular densities, Breast Density category C . No suspicious masses or suspicious microcalcifications are seen. Stable benign appearing circumscrib ed nodule upper inner quadrant right breast. No change benign calcifications left breast. No skin thickening or abnormal axillary lymph nodes are seen. There has been no significant change from prior exams. IMPRESSION: BI-RADS Cat 2 - Benign Findings Yearly screening mammography is recommended. Breast Density Category C, heterogeneously Dense. The mammogram demonstrates the patient's breast tissue is dense. Dense breast tissue is very common a nd is not abnormal but dense breast tissue can make it harder to find cancer on a mammogram. Also, de nse breast tissue may increase breast cancer risk. This information about the result of the mammogram report was provided to the patient to raise their awareness. Use this report when you speak with the patient about their risks for breast cancer, which includes their family history. At that time, you may recommend additional screening tests (Ultrasound or MRI) as they might be useful based on their r isk. A negative radiographic report should not delay biopsy if a dominant or clinically suspicious mass is present. Up to ten percent of cancers are not identified on mammography. A negative report may reinforce clinical impression. Adenosis and dense breasts may obscure an underlying neoplasm. False positive reports average 6 to 10%.
== END 2022-05-29 01:29 ==
LOC: DI 01:09
PROVIDERS: PCP Nurse Practitioner Family; Visit Provider Nurse Practitioner Family
DX: Z12.31 Encounter for screening mammogram for malignant neoplasm of breast (principal); N60.81 Other benign mammary dysplasias of right breast; N60.82 Other benign mammary dysplasias of left breast
CPT/HCPCS: 77063; 77067

== ENCOUNTER 2022-08-14 15:04 | Outpatient (REF) | payer MEDICAID, SELFPAY ==
[2022-08-14 18:35] LABS: Abs Immature Grans 0.08 10^3/uL (0.0-0.06); Absolute Basophil Count 0.08 10^3/uL (0.0-0.2); Absolute Monocyte Count 1.13 10^3/uL (0.1-0.8); Basophils % 0.5; Eosinophils % 2.2; HCT 43.5 % (36.0-46.0); HGB 13.9 g/dL (11.2-15.7); Immature Grans % 0.5; Lymphocytes % 22.4; MCV 85 fL (80-95); MPV 10.7 fL (8.0-11.0); Monocytes % 7.2; Neutrophils % 67.2; Platelet Count 498 10^3/uL (130-400); RBC 5.14 10^6/uL (3.93-5.22); RDW 14.8 % (11.7-14.6); RDW-SD 45.4 fL; WBC 15.63 10^3/uL (4.4-10.8)
[2022-08-14 18:37] LABS: Absolute Eosinophil Count 0.34 10^3/uL (0.0-0.7)
[2022-08-14 19:14] LABS: Hemoglobin A1C 7.9 % (<5.7)
[2022-08-14 19:24] LABS: ALT 38 U/L (14-59); AST 28 U/L (15-37); Albumin 3.5 g/dL (3.4-5.0); Alkaline Phosphatase 155 U/L (46-116); Anion Gap 7.6 mmol/L (3-11); BUN 11 mg/dL (7-18); Bilirubin, Total 0.3 mg/dL (0.2-1.0); CO2 28.4 mmol/L (21.0-32.0); CREATININE 0.7 mg/dL (0.55-1.02); Calcium 9.8 mg/dL (8.5-10.1); Chloride 102 mmol/L (98-107); Estimated GFR 95.92 (mL/min/1.73m2); Glucose 122 mg/dL (74-106); Potassium 4.3 mmol/L (3.5-5.1); Sodium 138 mmol/L (136-145); Total Protein 7.6 g/dL (6.4-8.2)
== END 2022-08-14 15:05 | disposition home or self-care (01) ==
LOC: NCHCN 15:04
PROVIDERS: PCP Nurse Practitioner Family; Visit Provider Nurse Practitioner Family
DX: F41.9 Anxiety disorder, unspecified (principal); R23.1 Pallor; E11.9 Type 2 diabetes mellitus without complications
CPT/HCPCS: 80053; 83036; 85025

== ENCOUNTER 2022-08-19 01:48 | Outpatient (CLI) | payer MEDICAID, SELFPAY ==
--- NOTE | 2022-08-19 13:11 | DI.RAD_ITS ---
Exam(s) XR SHOULDER RT COMPLETE 2+V EXAM: XR SHOULDER RT COMPLETE 2+V CLINICAL HISTORY: RT SHOULDER PAIN, M25.511. TECHNIQUE: 2D digital imaging was performed of the right shoulder. Five images were obtained. AP, Grashey, Y-view and axillary views were obtained. COMPARISON: No exams were available for comparison FINDINGS: BONES: No acute fracture is present. No bony destructive lesion is seen. JOINTS: No dislocation present. The joint spaces are unremarkable. SOFT TISSUE: Normal. IMPRESSION: Unremarkable radiographs of the right shoulder. DATA REPOSITORY: RADIATION DOSE DELIVERED:
== END 2022-08-19 02:08 ==
LOC: DI 01:48
PROVIDERS: PCP Nurse Practitioner Family; Visit Provider Nurse Practitioner Family
DX: M25.511 Pain in right shoulder (principal)
CPT/HCPCS: 73030

== ENCOUNTER 2022-08-28 12:30 | Outpatient (REF) | payer MEDICAID, SELFPAY ==
[2022-08-28 15:48] LABS: Abs Immature Grans 0.07 10^3/uL (0.0-0.06); Absolute Eosinophil Count 0.19 10^3/uL (0.0-0.7); Absolute Monocyte Count 1.47 10^3/uL (0.1-0.8); Basophils % 0.4; HCT 42.9 % (36.0-46.0); HGB 13.8 g/dL (11.2-15.7); Immature Grans % 0.4; MCH 26.5 pg (27.0-33.0); MCHC 32.2 % (32.0-36.0); MCV 83 fL (80-95); MPV 11.3 fL (8.0-11.0); Monocytes % 7.6; Neutrophils % 72.6; Platelet Count 421 10^3/uL (130-400); RDW 14.4 % (11.7-14.6); RDW-SD 42.8 fL; WBC 19.35 10^3/uL (4.4-10.8)
[2022-08-28 15:58] LABS: Absolute Basophil Count 0.08 10^3/uL (0.0-0.2); Absolute Lymphocyte Count 3.48 10^3/uL (1.2-3.4); Absolute Neutrophil Count 14.05 10^3/uL (1.2-6.7)
== END 2022-08-28 12:31 | disposition home or self-care (01) ==
LOC: NCHCN 12:30
PROVIDERS: PCP Nurse Practitioner Family; Visit Provider Nurse Practitioner Family
DX: D72.829 Elevated white blood cell count, unspecified (principal)
CPT/HCPCS: 85025

== ENCOUNTER 2022-12-11 10:16 | Emergency (ER) | payer MEDICAID, SELFPAY ==
[2022-12-11 10:19] VITALS: BP 130/73; PULSE 117; RESP 18; TEMP 37; O2SAT 98
[2022-12-11] MEDS: ACETAMINOPHEN 1,000 MG/100 ML BTL 400 MG IVPB (11:26)
[2022-12-11] MEDS: diazePAM 10 MG/2 ML SYR 5 MG IVP (11:27)
[2022-12-11 11:42] LABS: Abs Immature Grans 0.07 10^3/uL (0.0-0.06); Basophils % 0.3; Eosinophils % 0.2; HGB 12.4 g/dL (11.2-15.7); Immature Grans % 0.4; Lymphocytes % 13.4; MCH 25.9 pg (27.0-33.0); MCHC 31.8 % (32.0-36.0); MCV 81 fL (80-95); MPV 9.3 fL (8.0-11.0); Monocytes % 6.8; Neutrophils % 78.9; Platelet Count 556 10^3/uL (130-400); RBC 4.79 10^6/uL (3.93-5.22); RDW 14.9 % (11.7-14.6); RDW-SD 44.7 fL; WBC 18.72 10^3/uL (4.4-10.8)
[2022-12-11 11:43] LABS: Absolute Basophil Count 0.06 10^3/uL (0.0-0.2); Absolute Eosinophil Count 0.04 10^3/uL (0.0-0.7); Absolute Lymphocyte Count 2.51 10^3/uL (1.2-3.4); Absolute Monocyte Count 1.27 10^3/uL (0.1-0.8); Absolute Neutrophil Count 14.77 10^3/uL (1.2-6.7)
[2022-12-11 11:56] LABS: ALT 23 U/L (14-59); AST 14 U/L (15-37); Albumin 2.9 g/dL (3.4-5.0); Alkaline Phosphatase 148 U/L (46-116); Anion Gap 8.1 mmol/L (3-11); BUN 8 mg/dL (7-18); Bilirubin, Total 0.3 mg/dL (0.2-1.0); CO2 27.9 mmol/L (21.0-32.0); CREATININE 0.7 mg/dL (0.55-1.02); Calcium 9.9 mg/dL (8.5-10.1); Chloride 98 mmol/L (98-107); Estimated GFR 95.92 (mL/min/1.73m2); Glucose 164 mg/dL (74-106); Potassium 3.9 mmol/L (3.5-5.1); Sodium 134 mmol/L (136-145); Total Protein 7.6 g/dL (6.4-8.2)
--- NOTE | 2022-12-11 12:00 | DI.CT_ITS ---
Exam(s) CT HEAD CERVICAL SPINE WO EXAM: CT HEAD CERVICAL SPINE WO CLINICAL HISTORY: headache, neck pain. TECHNIQUE: Imaging Protocol: Axial computed tomography images with coronal and sagittal reformatted images were created and reviewed COMPARISON: CT HEAD WITHOUT CONTRAST from 06/27/2010 FINDINGS: Head CT Ventricles and Extra axial spaces: Normal in size and morphology for the patient's age. Hemorrhage: None. Cerebral parenchyma: Normal. Midline shift: None. Brainstem/Cerebellum: Normal. Calvarium: Normal. Visualized Paranasal sinuses/Mastoids: Clear. Soft tissues: Unremarkable. Cervical Spine CT BONES: Vertebral body heights are maintained. Alignment is normal. There is no evidence of acute frac ture. Severe degenerative disc changes and facet degenerative changes are seen . SOFT TISSUES: No paraspinal hematoma. The airway appears intact. No pneumothorax is seen at the lung apices. IMPRESSION: Head CT: No acute abnormality. C-spine CT: Degenerative changes, no acute abnormality. RADIATION DOSE DELIVERED: Total DLP DATA REPOSITORY: All CT scans at this facility are submitted to the National Radiology Data Registry (NRDR) Dose Index Registry (DIR) with the [employer] (ACR). RADIATION OPTIMIZATION: All CT scans at this facility use at least one of these dose optimization te chniques: automated exposure control; mA and/or kV adjustment per patient size (includes targeted exa ms where dose is matched to clinical indication); or iterative reconstruction.
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
[2022-12-11 14:13] VITALS: BP 155/79; PULSE 97; RESP 16; O2SAT 97
--- NOTE | 2022-12-11 15:25 | NUR.NOTE ---
Faxed Referral to Elisha Langley for follow up to Neck Pain and would like to have her seen next week.
[2022-12-11 15:38] VITALS: BP 114/95; PULSE 100; RESP 16; O2SAT 97
== END 2022-12-11 15:55 | disposition home or self-care (01) ==
PROVIDERS: Emergency Provider Nurse Practitioner Family; PCP Nurse Practitioner Family
DX: M54.2 Cervicalgia (principal); F17.200 Nicotine dependence, unspecified, uncomplicated; D72.829 Elevated white blood cell count, unspecified
CPT/HCPCS: 36415; 80053; 96374; 96375; 99285; 70450; 72125; 85025; 99284; J0131; J3360

== ENCOUNTER → 2022-12-23 02:10 | Outpatient (CLI) | payer MEDICAID, SELFPAY ==
--- NOTE | 2022-12-23 14:33 | DI.CTLCSR_ITS ---
Exam(s) CT CHEST LUNG CANCER SCREEN EXAM: CT CHEST LUNG CANCER SCREEN CLINICAL HISTORY: CURRENT SMOKER, F17.210, SCREENING FOR LUNG CANCER. TECHNIQUE: Imaging Protocol: Low Dose Technique CONTRAST MATERIAL: None COMPARISON: No exams were available for comparison FINDINGS: CHEST: LUNGS: There is a tiny 2 millimeter subpleural nodule in the left upper lobe. Another similar size t iny subpleural nodule noted in the lateral aspect of the right upper lobe. Period no other focal ingris g findings. No pleural effusions. No infiltrates. No findings in the trachea and mainstem bronchi. . There are no confluent infiltrates. No pleural effusions. MEDIASTINUM: There is no obvious hilar nor mediastinal adenopathy. However, the thyroid gland is abn ormal. Right lobe is enlarged and appears to contain nodules and deviates the trachea towards the le ft side. CARDIAC: Heart size is normal. There is no pericardial effusion.Caliber of the thoracic aorta is wit hin normal limits. OTHER: No adrenal masses. OSSEOUS: No significant osseous lesions.. IMPRESSION: 1. There are tiny benign-appearing nodules in both upper lobes. No infiltrates nor pleural effusions nor intrathoracic adenopathy. 2. Abnormal thyroid gland which deviates trachea towards the left side. Enlarged right lobe contains nodules. Recommend thyroid ultrasound 3. Lung RADS Cat 2S - Benign Appearance / Behavior: Nodules with a very low likelihood of becoming a clinically active cancer due to size or lack of growth THYROID findings as above. Lung-RADS 1.0 CATEGORIES: Category 0 - Prior chest CT exam(s) being located for comparison. Category 1 - Annual screening in 12 months. No nodules or definitely benign nodules. Category 2 - Annual screening in 12 months. Benign appearance. Nodules with low likelihood of becomin g active cancer. Category 3 - 6-month follow-up. Probably benign. Short-term follow-up suggested. Nodules with low lik elihood of becoming active cancer. Category 4A - 3-month follow-up and CT/PET if >8 mm in size. Suspicious finding. Findings which requi re additional testing. Category 4B - Findings which require additional testing and tissue sampling. Category 4X - Category 3 or 4 nodules with additional features or imaging findings that increases the suspicion of malignancy. Modifier S- Potentially clinically significant findings (non lung cancer) RADIATION DOSE DELIVERED: Total DLP DATA REPOSITORY: All CT scans at this facility are submitted to the National Radiology Data Registry (NRDR) Dose Index Registry (DIR) with the [employer] ([employer]). RADIATION OPTIMIZATION: All CT scans at this facility use at least one of these dose optimization te chniques: automated exposure control; mA and/or kV adjustment per patient size (includes targeted exa ms where dose is matched to clinical indication); or iterative reconstruction.
== END ==
PROVIDERS: PCP Nurse Practitioner Family; Visit Provider Nurse Practitioner Family
DX: F17.210 Nicotine dependence, cigarettes, uncomplicated (principal); Z12.2 Encounter for screening for malignant neoplasm of respiratory organs; R91.8 Other nonspecific abnormal finding of lung field
CPT/HCPCS: 71271

== ENCOUNTER → 2023-01-05 00:42 | Outpatient (CLI) | payer MEDICAID, SELFPAY ==
--- NOTE | 2023-01-05 | DI.US_ITS ---
Exam(s) US THYROID EXAM: US THYROID CLINICAL HISTORY: ENLARGED THYROID RT, E04.9, MULTIPLE THYROID NODULES, E04.2, ABNL US 2019. TECHNIQUE: Ultrasound thyroid performed using standard protocol. COMPARISON: US US THYROID from 12/25/2019 FINDINGS: Both thyroid lobes exhibit upper normal size and both contain nodules as previously discussed on the prior ultrasound examination of 12/25/2019. The nodules which will be discussed are the ones of pote ntial concern. RIGHT THYROID LOBE: Measures 2 cm AP x 2.6 cm wide x 5.0 cm craniocaudal There are 3 solid nodules in the right thyroid lobe which are relatively stable when compared to the prior study listed above and classify as TR 4 nodules which can be followed as they all measure less than 1.5 cm. However, in the right-side of the isthmus there is a solid nodule with details as follows: Size: This nodule measures 1.6 x 1.5 x 1.1 cm Composition: Solid-2 points Echogenicity: Hypoechoic-2 points Shape: Wider than taller in the transverse plane-0 points Margin: Smooth but with significant elevation of the pseudo capsule/element of extra thyroidal extens ion-3 points Echogenic Foci: None-0 point Total Points for this nodule: 7 ACR Ti-Rads Category: TR5 Therefore this a is a significantly suspicious nodule which should undergo biopsy as it classifies as a TR 5 nodule and measures greater than 1 cm size LEFT THYROID LOBE: Measures 1.8 cm AP x 2.0 wide x 5.0 cm craniocaudal There 3 nodules in the left thyroid lobe and 1 in the left side of the isthmus. The most significant nodule on the left side is in the superior aspect of the left pole. Details of this nodule are as f ollows: Size: This nodule measures 1.6 x 1.4 x 1.0 cm Composition: Solid-2 points Echogenicity: Hypoechoic-2 points Shape: Wider than taller in the transverse plane-0 points Margin: Also exhibits extra thyroidal extension-3 points Echogenic Foci: None-0 points Total points for this nodule: 7 ACR Ti-Rads Category: 5 This suspicious TR 5 level nodule requires ultrasound-guided FNA as it measures greater than 1 cm siz e. LYMPH NODES: Small benign-appearing lymph nodes are noted on both sides the neck.. IMPRESSION: 1. No bilateral nodules. 2. Two of the nodules 5 for ultrasound-guided FNA as they register as TR5 level nodules and measure g reater than 1 cm (which is the cutoff size for biopsy of TR 5 level nodules). These nodules are in t he right side of the isthmus and in the upper left thyroid lobe. Both exhibit an element of extra th yroidal extension. 3. The other nodules in both lobes and the isthmus are solid but can be followed and do not qualify f or ultrasound-guided FNA at this time. 4. There is no significant lymphadenopathy. DATA REPOSITORY:
== END ==
PROVIDERS: PCP Nurse Practitioner Family; Visit Provider Nurse Practitioner Family
DX: E04.2 Nontoxic multinodular goiter
CPT/HCPCS: 76536

== ENCOUNTER → 2023-04-27 02:32 | Outpatient (CLI) | payer MEDICAID, SELFPAY ==
--- NOTE | 2023-04-27 11:20 | DI.US_ITS ---
Exam(s) US NEEDLE LOCAL OTHER WO RAD EXAM: US NEEDLE LOCAL OTHER WO RAD CLINICAL HISTORY: thyroid nodule,ultrasound guided bx,e04.1. COMPARISON: US US THYROID from 01/05/2023 Ultrasound was provided for guidance with performing thyroid nodule FNA. Please see procedure note f or details. DATA REPOSITORY:
--- NOTE | 2023-04-27 11:40 | PAPNONF_PTH ---
PATIENT: Kimber Cheek LOC: [facility] U#:[id number] AGE/SX: 70/F ROOM: RE04/27/[address]: Ema Serrano : 1955 BED: DIS: SPEC #: [id number] RECD: 04/27/23 13:00 STATUS: ANILA CALLOWAY #: [id number] ARLENE: 04/27/23 11:[address]: Ema Serrano DEPT: [facility] Cytology RECD BY: Yessy Nicole ENTERED: 04/27/23 13:02 SP TYPE: VIPUL PERRY DR: SUHAIL TELLES Tissues: 1 - BODY FLUID CYTO-FINE NEEDLE ASPIRATE-[facility] 2 - BODY FLUID CYTO-FINE NEEDLE ASPIRATE-[facility] Procedures: BODY FLUID CYTO-FINE NEEDLE ASPIRATE-[facility] Comments: [id number] (PATH FNA CONSULT) (REFRIGERATED)
--- NOTE | 2023-04-27 11:50 | W.PROCNOTE ---
Date of service: 04/27/23 Time of Service: 11:50 Procedure Note Date of procedure: 04/27/23 Procedure: Ultrasound-guided FNA, 2 thyroid nodules, pathology present Surgeon/Proceduralist/Physician: Vini Anthony Procedure Diagnosis: Multinodular thyroid Procedure Indications: The patient has 2 nodules meeting criteria for biopsy. 1 in the superior lobe of the left thyroid and 1 in the right isthmus. Options were explained to the patient regarding further management. She elected undergo the above procedure. Consent was filled out and signed prior to the procedure. Procedure Description: The patient was positioned in supine position with her neck slightly extended. She was prepped and draped in appropriate fashion and ultrasound was used to localize first the right nodule and then the second nodule. The skin and subcutaneous tissues were anesthetized with 1% lidocaine with 1/100,000 epinephrine overlying the right nodule first. 25-gauge needle was then used to perform biopsy. Pathology confirmed adequate cellularity. 2 additional passes were made for potential Afirma testing. Attention was then turned to the left superior lobe thyroid nodule and the procedure was again repeated. She tolerated this procedure well. Sterile dressing was applied to the wound on the skin. Hemostasis was confirmed. The patient was then allowed to sit and then stand and ambulate. Her vital signs remained stable. She will remove the bandage later on today and not replace it. She will call with any signs of infection or if she does not hear from me within 1 week with regard to pathology. She may Tylenol for any discomfort. She had no further questions. She is comfortable with the plan.
== END ==
PROVIDERS: PCP Nurse Practitioner Family; Visit Provider Registered Nurse Maternal Newborn
DX: E04.1 Nontoxic single thyroid nodule (principal); R89.6 Abnormal cytological findings in specimens from other organs, systems and tissues
CPT/HCPCS: 10005; 76942; 88104

== ENCOUNTER 2023-09-08 08:32 | Outpatient (CLI) | payer MEDICAID, SELFPAY ==
[2023-09-08 08:54] LABS: TSH (W/Ref FT4) 1.23 uIU/mL (0.36-3.74)
== END 2023-09-08 08:33 | disposition home or self-care (01) ==
LOC: LBO 08:33
PROVIDERS: Visit Provider Registered Nurse Maternal Newborn
DX: E04.1 Nontoxic single thyroid nodule (principal)
CPT/HCPCS: 36415; 84443

== ENCOUNTER 2023-10-18 02:48 | Outpatient (CLI) | payer MEDICAID, SELFPAY ==
--- NOTE | 2023-10-18 | DI.RAD_ITS ---
Exam(s) XR LUMBAR SPINE COMPLETE EXAM: XR LUMBAR SPINE COMPLETE CLINICAL HISTORY: PAIN LUMBAR SPINE, M54.51. TECHNIQUE: 2D digital imaging was performed of the lumbar spine. Five images were obtained. AP, la teral, right oblique, left oblique and L5-S1 spot views were obtained. COMPARISON: No exams were available for comparison FINDINGS: BONES: No fracture or destructive lesion. There osteophytes seen anteriorly. Degenerative changes of the facets are seen particularly at L4-5 and L5-S1. DISKS: There is disc space narrowing at T12-L1 through L2-L3. ALIGNMENT: There is a right convex lumbar scoliosis. No spondylolysis or spondylolisthesis. SOFT TISSUE: Vascular calcifications are present. IMPRESSION: Moderate degenerative changes in the lumbar spine. DATA REPOSITORY: RADIATION DOSE DELIVERED:
== END 2023-10-18 03:08 ==
LOC: DI 02:48
PROVIDERS: Visit Provider Nurse Practitioner Family
DX: M51.36 Other intervertebral disc degeneration, lumbar region (principal)
CPT/HCPCS: 72110

== ENCOUNTER 2023-12-09 17:29 | Outpatient (REF) | payer MEDICAID, SELFPAY ==
[2023-12-09 19:37] LABS: ALT 27 U/L (14-59); AST 20 U/L (15-37); Albumin 3.3 g/dL (3.4-5.0); Alkaline Phosphatase 103 U/L (46-116); Anion Gap 8.1 mmol/L (3-11); BUN 23 mg/dL (7-18); Bilirubin, Total 0.29 mg/dL (0.2-1.0); CO2 27.9 mmol/L (21.0-32.0); CREATININE 0.9 mg/dL (0.55-1.02); Calcium 9.4 mg/dL (8.5-10.1); Calculated LDL 120 mg/dL (<100); Chloride 107 mmol/L (98-107); Cholesterol 184 mg/dL (<200); Estimated GFR 70.51 (mL/min/1.73m2); Glucose 158 mg/dL (74-106); HDL Cholesterol 44 mg/dL (40-60); Potassium 4.5 mmol/L (3.5-5.1); Sodium 143 mmol/L (136-145); TSH 0.93 uIU/Ml (0.36-3.74); Triglyceride 100 mg/dL (<150)
[2023-12-09 20:08] LABS: FREE T4 1.02 ng/dL (0.76-1.46)
== END 2023-12-09 17:30 | disposition home or self-care (01) ==
LOC: NCHCN 17:29
PROVIDERS: PCP Nurse Practitioner Family; Visit Provider Nurse Practitioner Family
DX: I10 Essential (primary) hypertension (principal); E78.5 Hyperlipidemia, unspecified; E04.9 Nontoxic goiter, unspecified
CPT/HCPCS: 80053; 80061; 84439; 84443

== ENCOUNTER 2024-06-23 12:54 | Outpatient (REF) | payer MEDICAID, SELFPAY ==
[2024-06-23 21:10] LABS: Anion Gap 5.5 mmol/L (3-11); BUN 13 mg/dL (7-18); CO2 30.5 mmol/L (21.0-32.0); CREATININE 0.7 mg/dL (0.55-1.02); Calcium 9.9 mg/dL (8.5-10.1); Calculated LDL 121 mg/dL (<100); Chloride 104 mmol/L (98-107); Cholesterol 204 mg/dL (<200); Estimated GFR 94.73 (mL/min/1.73m2); Glucose 124 mg/dL (74-106); HDL Cholesterol 45 mg/dL (>or=50); Magnesium 1.9 mg/dL (1.8-2.4); Potassium 5.1 mmol/L (3.5-5.1); Sodium 140 mmol/L (136-145); Triglyceride 190 mg/dL (<150)
[2024-06-23 21:50] LABS: COMMENT (LAB VIEW ONLY) 16.28 mg/dL
== END 2024-06-23 12:55 | disposition home or self-care (01) ==
LOC: NCHCN 12:54
PROVIDERS: PCP Nurse Practitioner Family; Visit Provider Family Medicine
DX: E11.9 Type 2 diabetes mellitus without complications (principal); E78.5 Hyperlipidemia, unspecified; R25.2 Cramp and spasm
CPT/HCPCS: 80048; 80061; 82043; 82570; 83735

== ENCOUNTER 2024-07-07 11:34 | Outpatient (CLI) | payer MEDICAID, SELFPAY ==
--- NOTE | 2024-07-07 | DI.RAD_ITS ---
Exam(s) XR CHEST 2V PA LATERAL EXAM: XR CHEST 2V PA LATERAL CLINICAL HISTORY: Persistent, chronic cough, R05.3. TECHNIQUE: 2D digital imaging was performed. COMPARISON: CT CT CHEST LUNG CANCER SCREEN from 12/23/2022 FINDINGS: 2 views: Heart size is normal. The mediastinum is not widened. There is a focal area of nodular infiltrate adjacent to the left heart border seen on the frontal vie w. This measures 2.5 cm wide by 0.9 cm. Less evident on the lateral view. Probably in the lingular segment. Right lung is clear. There are no pleural effusions. IMPRESSION: Left lower lung nodular infiltrate adjacent to the left heart border. Possibly infectious such as fo alaina pneumonia but follow-up to resolution is recommended to rule out neoplasm. DATA REPOSITORY: RADIATION DOSE DELIVERED:
== END 2024-07-07 11:54 ==
LOC: DI 11:35
PROVIDERS: PCP Nurse Practitioner Family; Visit Provider Physician Assistant Medical
DX: R05.3 Chronic cough (principal); R91.8 Other nonspecific abnormal finding of lung field
CPT/HCPCS: 71046

== ENCOUNTER 2024-08-18 12:43 | Outpatient (CLI) | payer MEDICAID, SELFPAY ==
--- NOTE | 2024-08-18 13:30 | DI.RAD_ITS ---
Exam(s) XR CHEST 2V PA LATERAL EXAM: XR CHEST 2V PA LATERAL CLINICAL HISTORY: ABNL FINDINGS ON CXR 07/27/24 R93.89 PNEUMONIA J18.9 TECHNIQUE: 2D digital imaging was performed. Two views. COMPARISON: CT CT CHEST LUNG CANCER SCREEN from 12/23/2022 CR XR CHEST 2V PA LATERAL from 07/07/2024 FINDINGS: HEART: Normal size. Aorta: Not dilated. PULMONARY VASCULATURE: Normal. MEDIASTINUM: Unremarkable. LUNGS: No evidence of focal infiltrate. Clearing of previously noted density adjacent to the left heart border. PLEURAL SPACE: No pleural effusion or pneumothorax. BONE:Unremarkable for age. SOFT TISSUES: Unremarkable. IMPRESSION: No acute abnormality. DATA REPOSITORY: RADIATION DOSE DELIVERED:
== END 2024-08-18 13:03 ==
LOC: DI 12:43
PROVIDERS: PCP Nurse Practitioner Family; Visit Provider Family Medicine
DX: J18.9 Pneumonia, unspecified organism (principal)
CPT/HCPCS: 71046

== ENCOUNTER 2024-08-25 00:27 | Outpatient (CLI) | payer MEDICAID, SELFPAY ==
--- NOTE | 2024-08-25 | DI.DEXA_ITS ---
Exam(s) XR DEXA BONE DENSITY W/WO FAUSTINO EXAM: XR DEXA BONE DENSITY W/WO FAUSTINO CLINICAL HISTORY: MENOPAUSE SCREENING, Z78.0, ASYMPTOMATIC MENOPAUSAL STATE TECHNIQUE: COMPARISON: No exams were available for comparison FINDINGS: Lateral Spine Image: Unremarkable. No compression deformities identified. Left hip: Total T-Score: -1.2 Total Z-Score: 0.1 T- and Z-scores: Findings are consistent with osteopenia. Lumbar Spine: Total T-Score: 0.8 Total Z-Score: 2.7 T- and Z-scores: Within normal limits. IMPRESSION: No evidence of osteoporosis.
== END 2024-08-25 00:47 ==
LOC: DI 00:28
PROVIDERS: PCP Nurse Practitioner Family; Visit Provider Family Medicine
DX: Z78.0 Asymptomatic menopausal state (principal); Z13.820 Encounter for screening for osteoporosis
CPT/HCPCS: 77080

== ENCOUNTER 2024-10-16 10:28 | Outpatient (CLI) | payer MEDICAID, SELFPAY | END 2024-10-16 10:29 | disposition home or self-care (01) | PROVIDERS: PCP Family Medicine; Visit Provider Family Medicine | DX: R00.2 Palpitations (principal) | CPT/HCPCS: 93270 ==

== ENCOUNTER 2024-11-16 07:19 | Outpatient (CLI) | payer MEDICAID, SELFPAY ==
--- NOTE | 2024-11-16 12:32 | W.CARDEVENT ---
Date of service: 11/16/24 Time of Service: 12:32 Cardiac Event Recorder Referring Provider:: Arlene Medellin Indications:: Palpitations Cardiac Event Note: This is a cardiac event monitor. Patient was monitored for 29 days. Rhythm throughout was sinus with an average heart rate of 86. There was no significant bradycardia. Maximum heart rate was 111. There are very rare isolated ventricular ectopic beats There was no atrial fibrillation, no significant supraventricular dysrhythmias, no high-grade AV block, no pauses greater than 3 seconds No symptoms were reported
== END 2024-11-16 07:20 | disposition home or self-care (01) ==
LOC: CARDOPNVT 07:19
PROVIDERS: PCP Family Medicine; Visit Provider Internal Medicine Cardiovascular Disease
DX: R00.2 Palpitations (principal); R00.1 Bradycardia, unspecified
CPT/HCPCS: 93272

== ENCOUNTER 2024-11-20 15:41 | Outpatient (REF) | payer MEDICAID, SELFPAY ==
[2024-11-20 21:56] LABS: AST 15 U/L (15-37)
[2024-11-20 23:38] LABS: Hemoglobin A1C 6.9 % (<5.7)
[2024-11-21 15:23] LABS: Calculated LDL 74 mg/dL (<100); Cholesterol 136 mg/dL (<200); HDL Cholesterol 36 mg/dL (>or=50); Triglyceride 134 mg/dL (<150)
== END 2024-11-20 15:42 | disposition home or self-care (01) ==
LOC: NCHCN 15:41
PROVIDERS: PCP Family Medicine; Visit Provider Family Medicine
DX: E11.9 Type 2 diabetes mellitus without complications (principal); E78.49 Other hyperlipidemia
CPT/HCPCS: 80061; 83036; 84450